=== PATIENT | female | born 1940 | race Caucasian/White ===

== ENCOUNTER 2017-05-12 09:18 | Day surgery (SDC) | payer BC ==
[~2017-05-12] VITALS: Ht 160 cm; Wt 81.8 kg
[~2017-05-12 09:18] MED LIST: COU3T PO; DULO-31 PO; EST1T PO; HYDR-569 PO; HYDR1TAB PO; LEVO75TA57 PO; OMEP-84 PO; ONDA4TAB6 PO; PANT-47 PO; RANI-366 PO; SOLI10TA6 PO
[2017-05-12 09:30] VITALS: BP 149/68
[2017-05-12] MEDS ORDERED: MIDAZolam 1mg/ml 10ml vial ONE (10:05)
[2017-05-12] MEDS ORDERED: fentaNYL/PF 50MCG/1 ML 2ML syringe ONE (10:05)
[2017-05-12 10:30] VITALS: BP 147/73
[2017-05-12 10:40] VITALS: BP 145/87
[2017-05-12 10:50] VITALS: BP 140/73
== END 2017-05-12 11:10 | disposition home or self-care (01) ==
LOC: GI LAB 09:18
PROVIDERS: ATTEND Internal Medicine Gastroenterology
DX: Z09 Encounter for follow-up examination after completed treatment for conditions other than malignant neoplasm (principal); K63.5 Polyp of colon; K59.4 Anal spasm; K57.30 Diverticulosis of large intestine without perforation or abscess without bleeding; Z98.0 Intestinal bypass and anastomosis status; Z79.01 Long term (current) use of anticoagulants; Z88.7 Allergy status to serum and vaccine; Z88.8 Allergy status to other drugs, medicaments and biological substances; Z79.899 Other long term (current) drug therapy; Z87.19 Personal history of other diseases of the digestive system
CPT/HCPCS: 45380; J2250; J3010; J7030; A4620; G0500

== ENCOUNTER 2019-05-26 13:39 | Emergency (ER) | payer BC, MEDICARE ==
[~2019-05-26] VITALS: Ht 154.9 cm; Wt 86.2 kg
[~2019-05-26 13:39] MED LIST changes: -DULO-31 PO; +HYDR-4383 PO; -HYDR-569 PO; -OMEP-84 PO; -ONDA4TAB6 PO; -PANT-47 PO; -SOLI10TA6 PO
--- NOTE | 2019-05-26 14:21 | NUR ---
Pt out to CT
[2019-05-26 14:50] LABS: EOSINOPHILS # (AUTO) 0.2 X10'3 (0-0.9); EOSINOPHILS % (AUTO) 3.3 % (0-6); HEMATOCRIT 39.5 % (35.0-45.0); HEMOGLOBIN 13.3 g/dl (12.0-16.0); LYMPHOCYTES # (AUTO) 1.1 X10'3 (1.1-4.8); LYMPHOCYTES % (AUTO) 22.9 % (21-51); MEAN CORPUSCULAR HGB CONC 33.7 g/dL (33.0-36.5); MEAN CORPUSCULAR VOLUME 94.9 FL (78-98); MEAN PLATELET VOLUME 7.2 FL (7.4-10.4); MONOCYTES # (AUTO) 0.6 X10'3 (0-0.9); MONOCYTES % (AUTO) 11.6 % (2-12); NEUTROPHILS # (AUTO) 3.1 X10'3 (1.8-7.7); NEUTROPHILS % (AUTO) 61.2 % (42-75); PLATELET COUNT 205 X10'3 (140-440); RED BLOOD COUNT 4.16 X10'6 (4.20-5.60); RED CELL DISTRIBUTION WIDTH 13.7 % (11.5-14.5)
[2019-05-26 15:03] LABS: ALANINE AMINOTRANSFERASE 24 U/L (12-78); ALBUMIN 3.5 G/DL (3.4-5.0); ALBUMIN/GLOBULIN RATIO 0.8 (1.1-1.5); ALKALINE PHOSPHATASE 55 IU/L (46-116); ANION GAP 6 (8-16); ASPARTATE AMINO TRANSFERASE 17 U/L (10-37); BILIRUBIN,TOTAL 0.3 MG/DL (0.1-1.0); BLOOD UREA NITROGEN 23 MG/DL (7-18); BUN/CREATININE RATIO 35.4 (6.6-38.0); CALCIUM 9.1 MG/DL (8.5-10.1); CHLORIDE 105 MMOL/L (99-107); CREATININE 0.65 MG/DL (0.40-0.90); GLUCOSE 107 MG/DL (70-104); PARTIAL THROMBOPLASTIN TIME 38 SECONDS (22-32); POTASSIUM 3.9 MMOL/L (3.5-5.1); SODIUM 141 MMOL/L (135-145); TOTAL CARBON DIOXIDE 29.9 MMOL/L (24-32); TOTAL PROTEIN 7.8 G/DL (6.4-8.2); eGFR 88 ML/MIN
[2019-05-26 15:07] LABS: TROPONIN I < 0.04 NG/ML (0.0-0.05)
[2019-05-26] MEDS ORDERED: ondansetron 4mg rapidly disintigrating tab PO ONE (16:00)
[2019-05-26] MEDS ORDERED: acetaminophen 325mg tablet PO ONE (16:00)
[2019-05-26 16:50] VITALS: BP 149/64
== END 2019-05-26 16:59 | disposition home or self-care (01) ==
LOC: ER 13:39
DX: S06.0X0A Concussion without loss of consciousness, initial encounter (principal); S16.1XXA Strain of muscle, fascia and tendon at neck level, initial encounter; S29.012A Strain of muscle and tendon of back wall of thorax, initial encounter; G89.29 Other chronic pain; Z98.890 Other specified postprocedural states; Z90.49 Acquired absence of other specified parts of digestive tract; Z90.710 Acquired absence of both cervix and uterus; Z88.7 Allergy status to serum and vaccine; Z88.8 Allergy status to other drugs, medicaments and biological substances; Z79.899 Other long term (current) drug therapy; W01.198A Fall on same level from slipping, tripping and stumbling with subsequent striking against other object, initial encounter; Y93.89 Activity, other specified; Y92.89 Other specified places as the place of occurrence of the external cause; Y99.9 Unspecified external cause status
CPT/HCPCS: 36415; 70450; 71045; 72125; 72128; 80053; 84484; 85025; 85610; 85730; 93005; 99284

== ENCOUNTER 2020-04-22 16:42 | Emergency (ER) | payer MEDICARE ==
[~2020-04-22] VITALS: Ht 157.5 cm; Wt 77.8 kg
[~2020-04-22 16:42] MED LIST changes: +DULO40CA2 PO; -EST1T PO; +ESTR2TAB6 PO; +GABA600T13 PO; -HYDR-4383 PO; -HYDR1TAB PO; -RANI-366 PO
[2020-04-22] MEDS ORDERED: normal saline 1000ML IV soln IVB ONE (17:15)
[2020-04-22 17:46] LABS: BASOPHILS % (AUTO) 0.8 % (0-1); EOSINOPHILS # (AUTO) 0.2 X10'3 (0-0.9); EOSINOPHILS % (AUTO) 3.9 % (0-6); HEMATOCRIT 40.2 % (35.0-45.0); HEMOGLOBIN 13.8 g/dl (12.0-16.0); LYMPHOCYTES # (AUTO) 1.2 X10'3 (1.1-4.8); LYMPHOCYTES % (AUTO) 24.6 % (21-51); MEAN CORPUSCULAR HEMOGLOBIN 33.1 PG (27.0-31.0); MEAN CORPUSCULAR HGB CONC 34.3 g/dL (33.0-36.5); MEAN CORPUSCULAR VOLUME 96.4 FL (78-98); MEAN PLATELET VOLUME 7.3 FL (7.4-10.4); MONOCYTES # (AUTO) 0.4 X10'3 (0-0.9); MONOCYTES % (AUTO) 8.4 % (2-12); NEUTROPHILS # (AUTO) 3.1 X10'3 (1.8-7.7); NEUTROPHILS % (AUTO) 62.3 % (42-75); PLATELET COUNT 209 X10'3 (140-440); RED BLOOD COUNT 4.17 X10'6 (4.20-5.60); RED CELL DISTRIBUTION WIDTH 14.2 % (11.5-14.5); WHITE BLOOD COUNT 4.9 X10'3 (4.5-11.0)
[2020-04-22 17:57] LABS: ALANINE AMINOTRANSFERASE 23 U/L (12-78); ALBUMIN 3.4 G/DL (3.4-5.0); ALBUMIN/GLOBULIN RATIO 0.7 (1.1-1.5); ALKALINE PHOSPHATASE 68 IU/L (46-116); ANION GAP 6 (8-16); ASPARTATE AMINO TRANSFERASE 15 U/L (10-37); BILIRUBIN,TOTAL 0.3 MG/DL (0.1-1.0); BLOOD UREA NITROGEN 28 MG/DL (7-18); BUN/CREATININE RATIO 44.4 (6.6-38.0); CALCIUM 9.6 MG/DL (8.5-10.1); CHLORIDE 106 MMOL/L (99-107); CREATININE 0.63 MG/DL (0.40-0.90); GLUCOSE 131 MG/DL (70-104); POTASSIUM 4.3 MMOL/L (3.5-5.1); SODIUM 142 MMOL/L (135-145); TOTAL CARBON DIOXIDE 30.4 MMOL/L (24-32); eGFR > 90 ML/MIN
[2020-04-22 18:00] LABS: TROPONIN I < 0.04 NG/ML (0.0-0.05)
[2020-04-22 18:04] LABS: CLARITY,URINE CLOUDY (Clear); COLOR,URINE YELLOW (Yellow); GLUCOSE, URINE NEGATIVE (Neg); KETONES,URINE NEGATIVE (Neg); LEUKOCYTE ESTERASE ,URINE SMALL (Neg); NITRITES, URINE NEGATIVE (Neg); OCCULT BLOOD,URINE NEGATIVE (Neg); PROTEIN,URINE TRACE mg/dl (Neg); UROBILINOGEN,URINE 0.2 E.U/dL (0.2-1.0)
[2020-04-22 18:33] LABS: UA COLLECTION TYPE STRAIGHT CATH
[2020-04-22] MEDS ORDERED: HYDROcodone/acetaminophen 5mg/325mg tablet PO ONE (18:35)
[2020-04-22 18:36] LABS: AMORPHOUS PHOSPHATES 1+; BACTERIA,URINE 4+ /HPF (Neg); RBC,URINE NONE SEEN /HPF (0-2); SQUAMOUS EPITHELIAL CELL,UR NONE SEEN /LPF (FEW)
[2020-04-22 19:37] VITALS: BP 132/74
== END 2020-04-22 19:30 | disposition home or self-care (01) ==
LOC: ER 16:42
DX: R53.1 Weakness (principal); M54.2 Cervicalgia; G89.29 Other chronic pain; Z90.49 Acquired absence of other specified parts of digestive tract; Z90.710 Acquired absence of both cervix and uterus; Z98.890 Other specified postprocedural states; Z72.89 Other problems related to lifestyle; Z88.7 Allergy status to serum and vaccine; Z88.8 Allergy status to other drugs, medicaments and biological substances; Z86.718 Personal history of other venous thrombosis and embolism; Z79.01 Long term (current) use of anticoagulants
CPT/HCPCS: 36415; 71045; 80053; 81001; 84484; 85025; 87088; 93005; 96360; 99285; J7030

== ENCOUNTER 2020-07-02 12:34 | Outpatient (CLI) | payer MEDICARE ==
[2020-07-02] MEDS ORDERED: BARIUM SULFATE 340 ML SUSP.RECON***PROCEDURE AREA ONLY**DONT ENTER PO ONE (14:00)
== END 2020-07-02 23:59 | disposition home or self-care (01) ==
LOC: RAD 12:34
PROVIDERS: ATTEND Psychiatry & Neurology Neurology
DX: R13.12 Dysphagia, oropharyngeal phase (principal); R47.1 Dysarthria and anarthria; R49.0 Dysphonia; G12.20 Motor neuron disease, unspecified
CPT/HCPCS: 74230